=== PATIENT | male | born 1970 | race Caucasian/White ===

== ENCOUNTER 2017-07-14 12:33 | Emergency (ER) | payer SELFPAY ==
[~2017-07-14] VITALS: Ht 180.3 cm; Wt 80.0 kg
[~2017-07-14 12:33] MED LIST: ROBA750T PO; anti inflammatory PO
[2017-07-14 12:35] VITALS: BP 179/110; PULSE 129; RESP 20; TEMP 98.4; O2SAT 99
[2017-07-14 14:30] VITALS: BP 184/86; PULSE 82; RESP 18; O2SAT 98
[2017-07-14] MEDS ORDERED: SODIUM CHLORIDE 0.9% FLUSH 10 ML FLUSH IVF PRN (14:30)
--- NOTE | 2017-07-14 14:37 | PD ---
HPI Chief Complaint: Hypertension Time Seen by Provider: 14:18 Travel History International Travel<30 days: No Contact w/Intl Traveler<30days: No Traveled to known affect area: No History of Present Illness HPI 47-year-old male with history of hypertension and COPD here for evaluation of a near syncopal episode while driving at 11 AM. Patient reports he was recently put on amlodipine for his blood pressure 5 days ago after he had an allergic reaction to his lisinopril. He reports this morning he felt dizzy with position changes and felt as if he was going to pass out while driving his vehicle. He pulled over and called his family to bring him to the emergency department. He denies headache, visual changes, chest pain, shortness of breath , abdominal pain, fever or chills. PFSH Past Medical History Narrative Medical Hypertension Hx Anticoagulant Therapy: No Cardiovascular Problems: No Chemotherapy: No Cerebrovascular Accident: No Diabetes: No Respiratory: Yes Social History Alcohol Use: Yes (beer a couple a day) Tobacco Use: Yes (1 ppd) Substance Use: No Allergies-Medications (Allergen,Severity, Reaction): Coded Allergies: No Known Allergies (Unverified , 03/16/17) Reported Meds & Prescriptions Reported Meds & Active Scripts Active Reported [anti inflammatory ] 1 Tab PO BID Robaxin (Methocarbamol) 750 Mg Tab 750 Mg PO BID Review of Systems Except as stated in HPI: all other systems reviewed are Neg General / Constitutional: No: Fever Eyes: No: Visual changes HENT: No: Headaches Cardiovascular: No: Chest Pain or Discomfort Respiratory: No: Shortness of Breath Gastrointestinal: No: Abdominal Pain Genitourinary: No: Dysuria Physical Exam Narrative GENERAL: Alert, well-appearing male in no acute distress. Patient sitting on the side of stretcher talking with family SKIN: Focused skin assessment warm/dry. HEAD: Atraumatic. Normocephalic. EYES: Pupils equal and round. No scleral icterus. No injection or drainage. EOMs intact. No nystagmus ENT: No nasal bleeding or discharge. Mucous membranes pink and moist. NECK: Trachea midline. No JVD. CARDIOVASCULAR: Regular rate and rhythm. No murmur appreciated. RESPIRATORY: No accessory muscle use. Clear to auscultation. Breath sounds equal bilaterally. GASTROINTESTINAL: Abdomen soft, non-tender, nondistended. Hepatic and splenic margins not palpable. MUSCULOSKELETAL: No obvious deformities. No clubbing. No cyanosis. No edema. NEUROLOGICAL: Awake and alert. No obvious cranial nerve deficits. Motor grossly within normal limits. Normal speech. PSYCHIATRIC: Appropriate mood and affect; insight and judgment normal. Data Data Last Documented VS Vital Signs Date Time Temp Pulse Resp B/P (MAP) Pulse Ox O2 Delivery O2 Flow Rate FiO2 07/14/17 12:35 98.4 129 20 179/110 (133) 99 Room Air Orders Orders Electrocardiogram (07/14/17 14:29) Basic Metabolic Panel (Bmp) (07/14/17 14:29) Complete Blood Count With Diff (07/14/17 14:29) Ecg Monitoring (07/14/17 14:29) Iv Access Insert/Monitor (07/14/17 14:29) Oximetry (07/14/17 14:29) Sodium Chloride 0.9% Flush (Ns Flush) (07/14/17 14:30) Orthostatic Vital Signs (07/14/17 14:29) MDM Medical Decision Making Medical Screen Exam Complete: Yes Emergency Medical Condition: Yes Interpretation(s) EKG: CBC: BMP: Orthostatic blood pressures: Differential Diagnosis Adverse medication reaction, electrolyte abnormality, vertigo Narrative Course 47-year-old male here for evaluation of a near syncopal episode and dizziness while driving 11 AM. Patient reports the event occurred after he increased his dose of amlodipine from 5 mg to 10 mg this morning. He reports the episode as feeling weak, blurred vision, lightheaded which resolved after he pulled his car over. Patient currently reports only mild dizziness with change of position from sitting to standing or turning side to side. IV access established, EKG, labs, orthostatics ordered and pending Margret Wheeler Jul 14, 2017 14:36
--- NOTE | 2017-07-14 15:02 | RADRPT ---
EXAM DATE/TIME: 07/14/2017 15:00 [facility] COMPARISON: No previous studies available for comparison. INDICATIONS : Chest pain. MEDICAL HISTORY : Chronic obstructive pulmonary disease. SURGICAL HISTORY : None. ENCOUNTER: Initial ACUITY: 1 day PAIN SCORE: 5/10 LOCATION: Bilateral chest FINDINGS: A single view of the chest demonstrates the lungs to be symmetrically aerated without evidence of mas s, infiltrate or effusion. The cardiomediastinal contours are unremarkable. Osseous structures are intact. CONCLUSION: No acute disease. Esau Mccoy MD FACR on July 14, 2017 at 15:01 Board Certified Radiologist. This report was verified electronically.
[2017-07-14 15:39] LABS: AUTOMATED NEUTROPHIL # 6.1 TH/MM3 (1.8-7.7); BASOPHIL % 0.5 % (0.0-2.0); EOSINOPHIL % 0.5 % (0.0-4.0); HEMATOCRIT 43.5 % (39.0-51.0); HEMO FLAGS DIFF FINAL; LYMPH % 14.8 % (9.0-44.0); LYMPHOCYTE # 1.2 TH/MM3 (1.0-4.8); MEAN CELL VOLUME 96.7 FL (80.0-100.0); MEAN CORPUSCULAR HEMOGLOBIN 33.1 PG (27.0-34.0); MEAN CORPUSCULAR HGB CONC 34.2 % (32.0-36.0); MONO % 7.8 % (0.0-8.0); NEUT % 76.4 % (16.0-70.0); PLATELET COUNT 209 TH/MM3 (150-450); RED BLOOD COUNT 4.49 MIL/MM3 (4.50-5.90); RED CELL DISTRIBUTION WIDTH 13.2 % (11.6-17.2)
[2017-07-14 16:08] LABS: BICARBONATE 23.8 MEQ/L (21.0-32.0)
[2017-07-14 16:15] LABS: POTASSIUM 3.8 MEQ/L (3.5-5.1)
[2017-07-14 16:28] VITALS: O2SAT 100
[2017-07-14 16:30] VITALS: BP_SYST 152; BP_SYST 174; BP_DIAS 100; RESP 18; RESP 20
--- NOTE | 2017-07-14 16:55 | PD ---
Data Data Last Documented VS Vital Signs Date Time Temp Pulse Resp B/P (MAP) Pulse Ox O2 Delivery O2 Flow Rate FiO2 07/14/17 16:30 114 18 152/100 (117) 102 20 174/100 (124) 07/14/17 16:28 100 Room Air 07/14/17 12:35 98.4 Orders Orders Electrocardiogram (07/14/17 14:29) Basic Metabolic Panel (Bmp) (07/14/17 14:29) Complete Blood Count With Diff (07/14/17 14:29) Ecg Monitoring (07/14/17 14:29) Iv Access Insert/Monitor (07/14/17 14:29) Oximetry (07/14/17 14:29) Sodium Chloride 0.9% Flush (Ns Flush) (07/14/17 14:30) Orthostatic Vital Signs (07/14/17 14:29) Troponin I (07/14/17 14:49) Chest, Single Ap (07/14/17 ) Labs Laboratory Tests Test 07/14/17 15:10 White Blood Count 8.0 TH/MM3 Red Blood Count 4.49 MIL/MM3 Hemoglobin 14.9 GM/DL Hematocrit 43.5 % Mean Corpuscular Volume 96.7 FL Mean Corpuscular Hemoglobin 33.1 PG Mean Corpuscular Hemoglobin Concent 34.2 % Red Cell Distribution Width 13.2 % Platelet Count 209 TH/MM3 Mean Platelet Volume 8.6 FL Neutrophils (%) (Auto) 76.4 % Lymphocytes (%) (Auto) 14.8 % Monocytes (%) (Auto) 7.8 % Eosinophils (%) (Auto) 0.5 % Basophils (%) (Auto) 0.5 % Neutrophils # (Auto) 6.1 TH/MM3 Lymphocytes # (Auto) 1.2 TH/MM3 Monocytes # (Auto) 0.6 TH/MM3 Eosinophils # (Auto) 0.0 TH/MM3 Basophils # (Auto) 0.0 TH/MM3 CBC Comment DIFF FINAL Differential Comment Blood Urea Nitrogen 12 MG/DL Creatinine 1.00 MG/DL Random Glucose 88 MG/DL Calcium Level 8.8 MG/DL Sodium Level 137 MEQ/L Potassium Level 3.8 MEQ/L Chloride Level 107 MEQ/L Carbon Dioxide Level 23.8 MEQ/L Anion Gap 6 MEQ/L Estimat Glomerular Filtration Rate 80 ML/MIN Troponin I LESS THAN 0.02 NG/ML MDM Supervised Visit with JOSIAS: Yes Narrative Course The history, exam, and medical decision-making in the associated mid-level provider note were completed with my assistance. I reviewed and agree with the findings presented. I attest that I had a [id number] encounter with the patient on the same day, and personally performed and documented my assessment and findings in the medical record. *My assessment and Findings: 47-year-old man with near-syncope while driving. Looks well. Recently upped his amlodipine dose. He was seated while his symptoms occurred. No chest pain. No trouble breathing. No change in chronic back pain. Workups unremarkable. I'm not sure this is related to his amlodipine or not. His appointment with his primary care doctor tomorrow however and I think he is safe for discharge and follow-up. Diagnosis Primary Impression: Near syncope Additional Instruction: Follow-up with your primary doctor tomorrow as scheduled. Return to the emergency department for any new or worsening symptoms. Med/Other Pt SpecificInfo: No Change to Meds Disposition: 01 DISCHARGE HOME Condition: Stable Ever Baeza MD Jul 14, 2017 16:55
[2017-07-14 17:04] VITALS: BP 192/100
--- NOTE | 2017-07-15 11:34 | EKG ---
Date Performed: 07/14/2017 Time Performed: 14:51:19 PTAGE: 47 years EKG: Sinus rhythm NORMAL ECG Compared to prior tracing no significant change PREVIOUS TRACING : 05/22/2015 12.58 DOCTOR: Steve Mane Interpretating Date/Time 07/15/2017 11:29:28
== END 2017-07-14 17:22 | disposition home or self-care (01) ==
LOC: NEPD 12:33
DX: R55 Syncope and collapse (principal); I10 Essential (primary) hypertension; F17.210 Nicotine dependence, cigarettes, uncomplicated
CPT/HCPCS: 71010; 80048; 84484; 85025; 93005; 99285